=== PATIENT | male | born 1980 | race Caucasian/White ===

== ENCOUNTER 2016-11-27 11:46 | Emergency (ER) | payer OTHER ==
[~2016-11-27] VITALS: Ht 177.8 cm; Wt 104.0 kg
[~2016-11-27 11:46] MED LIST: DM/P295L11 PO; LEVO750T26 PO; OMEP20CA9 PO; PRED20TA PO
[2016-11-27] MEDS ORDERED: OMEP40CA6 PO (12:31)
[2016-11-27 13:35] LABS: ASPARTATE AMINO TRANSFERASE 48 U/L (15-37); BLOOD UREA NITROGEN 17 mg/dL (7-18)
[2016-11-27 15:43] VITALS: BP 115/68
== END 2016-11-27 15:45 | disposition home or self-care (01) ==
LOC: ED 15:29
DX: R10.13 Epigastric pain (principal); R11.2 Nausea with vomiting, unspecified
CPT/HCPCS: 36415; 80053; 81001; 83690; 85025; 93005

== ENCOUNTER 2017-05-08 07:29 | Inpatient (IN) | payer OTHER ==
[~2017-05-08] VITALS: Ht 172.7 cm; Wt 109.4 kg
[~2017-05-08 07:29] MED LIST changes: +OMEP40CA6 PO
[2017-05-08] MEDS ORDERED: SODIUM CHLORIDE 0.9% 1,000ML IVBOLUS ONE (08:00)
[2017-05-08] MEDS ORDERED: SODIUM CHLORIDE FLUSH 10ML SYR IVF ONE (08:00)
[2017-05-08] MEDS ORDERED: FAMOTIDINE 20 MG/2 ML IVP ONE (08:00)
[2017-05-08] MEDS ORDERED: ONDANSETRON 2MG/ML, 2ML IVPush ONE (08:00)
[2017-05-08] MEDS ORDERED: FAMOTIDINE 20 MG/2 ML ONE (08:19)
[2017-05-08] MEDS ORDERED: ONDANSETRON 2MG/ML, 2ML ONE ×3 (08:19→12:39)
[2017-05-08 08:30] LABS: HEMATOCRIT 46.3 % (39.2-51.8); HEMOGLOBIN 15.7 g/dL (13.7-18.0); WHITE BLOOD COUNT 10.7 x10^3/uL (3.4-10)
[2017-05-08 08:40] LABS: BLOOD UREA NITROGEN 12 mg/dL (7-18)
[2017-05-08 08:43] LABS: ASPARTATE AMINO TRANSFERASE 270 U/L (15-37)
[2017-05-08] MEDS ORDERED: MORPHINE SULFATE 4 MG/ML, 1ML IVPush ONE (09:00)
[2017-05-08] MEDS ORDERED: MORPHINE SULFATE 4 MG/ML, 1ML ONE (09:29)
[2017-05-08] MEDS ORDERED: SODIUM CHLORIDE 0.9% 1,000 ML IV ONE (09:44)
[2017-05-08] MEDS ORDERED: PIPERACILLIN/TAZO/PMX 3.375GM 50 ML ONE ×2 (09:50→10:51)
[2017-05-08] MEDS ORDERED: HYDROmorphone 1 MG/ML, 1ML IVPush PRN (10:00)
[2017-05-08] MEDS ORDERED: ONDANSETRON 2MG/ML, 2ML IVPush PRN ×2 (10:00→11:30)
[2017-05-08] MEDS ORDERED: SODIUM CHLORIDE FLUSH 10ML SYR IVF PRN (10:00)
[2017-05-08] MEDS ORDERED: PIPERACILLIN/TAZO/PMX 3.375GM 50 ML IV ONE (10:00)
[2017-05-08] MEDS ORDERED: KETOROLAC 30 MG/1 ML ONE (10:35)
[2017-05-08] MEDS ORDERED: MIDAZOLAM 1 MG/ML, 2ML ONE (10:35)
[2017-05-08] MEDS ORDERED: FENTANYL PF 100 MCG/2ML ONE ×2 (10:36)
[2017-05-08] MEDS ORDERED: METOPROLOL 1 MG/ML, 5ML IV PRN (11:30)
[2017-05-08] MEDS ORDERED: OXYcodone 5 MG/5 ML ORAL.SOL UDC PO PRN (11:30)
[2017-05-08] MEDS ORDERED: MEPERIDINE/PF 25MG/0.5ML IVPush PRN (11:30)
[2017-05-08] MEDS ORDERED: MIDAZOLAM 1 MG/ML, 2ML IV PRN (11:30)
[2017-05-08] MEDS ORDERED: HYDROcodone/APAP 7.5-325MG/15ML UDC PO PRN (11:30)
[2017-05-08] MEDS ORDERED: KETOROLAC 30 MG/1 ML IV PRN (11:30)
[2017-05-08] MEDS ORDERED: hydrALAzine 20 MG/ML, 1ML IV PRN (11:30)
[2017-05-08] MEDS ORDERED: ALBUTEROL SULFATE 2.5 MG/3 ML NPPB PRN (11:30)
[2017-05-08] MEDS ORDERED: DIAZEPAM 5 MG/ML, 2ML IVPush PRN (11:30)
[2017-05-08] MEDS ORDERED: FENTANYL PF 100 MCG/2ML IV PRN (11:30)
[2017-05-08] MEDS ORDERED: ACETAMINOPHEN 325 MG TABLET PO PRN (11:30)
[2017-05-08] MEDS ORDERED: HYDROmorphone 1 MG/ML, 1ML IV PRN (11:30)
[2017-05-08] MEDS ORDERED: LABETALOL 5MG/ML, 20ML IV PRN (11:30)
[2017-05-08] MEDS ORDERED: EPHEDRINE 50 MG/ML, 1ML IVPush PRN (11:30)
[2017-05-08] MEDS ORDERED: PROMETHAZINE 25 MG/ML, 1ML IV PRN (11:30)
[2017-05-08] MEDS ORDERED: INDOMETHACIN 50 MG SUPP.RECT PR ONE (12:30)
[2017-05-08] MEDS ORDERED: OMNIPAQUE 350 MG/ML, 50 ML BOTTLE ONE (12:39)
[2017-05-08] MEDS ORDERED: PROPOFOL 10 MG/ML, 20ML ONE (12:39)
[2017-05-08] MEDS ORDERED: DEXAMETHASONE 4 MG/ML, 1ML ONE (12:39)
[2017-05-08] MEDS ORDERED: ROCURONIUM 10 MG/ML ONE (12:39)
[2017-05-08] MEDS ORDERED: SUCCINYLCHOLINE 20 MG/ML, 10ML ONE (12:39)
[2017-05-08] MEDS ORDERED: INDOMETHACIN 50 MG SUPP.RECT ONE (12:41)
[2017-05-08] MEDS ORDERED: hydrALAzine 20 MG/ML, 1ML IVPush PRN (15:00)
[2017-05-08] MEDS ORDERED: LABETALOL 5MG/ML, 20ML IVPush PRN (15:00)
[2017-05-08 15:26] VITALS: BP 135/83
[2017-05-08] MEDS: HYDROmorphone 2 MG/ML, 1ML IVPush PRN (15:27)
[2017-05-08] MEDS: THIAMINE 100 MG, MVI ADULT 10 ML, FOLIC ACID 1 MG in D5%-0.9% NACL 1,000 ML IV SCH (17:36)
[2017-05-08] MEDS: ENOXAPARIN 40 MG/0.4 ML SQ SCH (21:00)
[2017-05-08 21:37] VITALS: BP 119/68
[2017-05-08] MEDS: NS + 20MEQ KCL 1,000 ML IV SCH (21:44)
[2017-05-09 02:31] VITALS: BP 106/68
[2017-05-09 05:39] LABS: WHITE BLOOD COUNT 14.6 x10^3/uL (3.4-10)
[2017-05-09 05:52] LABS: BLOOD UREA NITROGEN 13 mg/dL (7-18)
[2017-05-09 06:03] LABS: ASPARTATE AMINO TRANSFERASE 81 U/L (15-37)
[2017-05-09 08:12] VITALS: BP 133/81
[2017-05-09] MEDS: HYDROmorphone 2 MG/ML, 1ML IVPush PRN ×3 (08:16→22:57)
[2017-05-09] MEDS: NS + 20MEQ KCL 1,000 ML IV SCH ×3 (10:00→23:26)
[2017-05-09] MEDS ORDERED: EPINEPHRINE 1 MG/ML, 1ML ONE ×2 (13:45→14:07)
[2017-05-09] MEDS ORDERED: BUPIVACAINE/PF 0.25% ONE (13:45)
[2017-05-09 13:50] VITALS: BP 131/84
[2017-05-09] MEDS ORDERED: MIDAZOLAM 1 MG/ML, 2ML ONE (13:57)
[2017-05-09] MEDS ORDERED: FENTANYL PF 250 MCG/5ML ONE (13:58)
[2017-05-09] MEDS ORDERED: CEFOTETAN 1 GM ONE (14:07)
[2017-05-09] MEDS ORDERED: ONDANSETRON 2MG/ML, 2ML ONE (14:07)
[2017-05-09] MEDS ORDERED: ROCURONIUM 10MG/ML,5ML ONE (14:07)
[2017-05-09] MEDS ORDERED: PROPOFOL 10 MG/ML, 20ML ONE (14:07)
[2017-05-09] MEDS ORDERED: DEXAMETHASONE 4 MG/ML, 5ML ONE (14:07)
[2017-05-09] MEDS ORDERED: KETOROLAC 30 MG/1 ML ONE (14:07)
[2017-05-09] MEDS ORDERED: FENTANYL PF 100 MCG/2ML ONE ×2 (14:40→15:26)
[2017-05-09] MEDS ORDERED: OXYcodone 5 MG/5 ML ORAL.SOL UDC PO PRN (15:00)
[2017-05-09] MEDS ORDERED: ALBUTEROL/IPRATROPIUM 2.5MG/0.5MG, 3 ML NPPB PRN (15:00)
[2017-05-09] MEDS ORDERED: HYDROmorphone 1 MG/ML, 1ML IV PRN (15:00)
[2017-05-09] MEDS ORDERED: ONDANSETRON 2MG/ML, 2ML IVPush PRN (15:00)
[2017-05-09] MEDS ORDERED: LABETALOL 5MG/ML, 20ML IV PRN (15:00)
[2017-05-09] MEDS ORDERED: ACETAMINOPHEN 325 MG TABLET PO PRN (15:00)
[2017-05-09] MEDS ORDERED: ALBUTEROL SULFATE 2.5 MG/3 ML ONE (15:13)
[2017-05-09] MEDS ORDERED: OXYcodone 5 MG/5 ML ORAL.SOL UDC ONE (15:25)
[2017-05-09] MEDS ORDERED: ACETAMINOPHEN 650 MG/20.3 ML UDC ONE (15:25)
[2017-05-09] MEDS ORDERED: ACETAMINOPHEN 325 MG TABLET ONE (15:26)
[2017-05-09] MEDS: FENTANYL PF 100 MCG/2ML IV PRN ×2 (15:35→15:45)
[2017-05-09] MEDS: PIPERACILLIN/TAZO/PMX 3.375GM 50 ML IV SCH ×2 (17:10→22:47)
[2017-05-09] MEDS ORDERED: morphine SULFATE 10 MG/ML, 1ML IV PRN (17:30)
[2017-05-09 19:08] VITALS: BP 129/68
[2017-05-09] MEDS: ENOXAPARIN 40 MG/0.4 ML SQ SCH (21:00)
[2017-05-09] MEDS: THIAMINE 100 MG, MVI ADULT 10 ML, FOLIC ACID 1 MG in D5%-0.9% NACL 1,000 ML IV SCH (21:05)
[2017-05-10 02:22] VITALS: BP 107/51
[2017-05-10] MEDS: PIPERACILLIN/TAZO/PMX 3.375GM 50 ML IV SCH ×4 (04:49→22:25)
[2017-05-10] MEDS ORDERED: ALBUTEROL SULFATE 2.5 MG/3 ML NPPB PRN (05:00)
[2017-05-10] MEDS: HYDROmorphone 2 MG/ML, 1ML IVPush PRN (05:14)
[2017-05-10] MEDS: NS + 20MEQ KCL 1,000 ML IV SCH ×4 (06:12→23:48)
[2017-05-10 06:15] LABS: HEMATOCRIT 36.5 % (39.2-51.8); HEMOGLOBIN 12.3 g/dL (13.7-18.0); WHITE BLOOD COUNT 17.2 x10^3/uL (3.4-10)
[2017-05-10 06:27] LABS: ASPARTATE AMINO TRANSFERASE 24 U/L (15-37); BLOOD UREA NITROGEN 7 mg/dL (7-18)
[2017-05-10] MEDS: HYDROcodone/APAP 5/325 TABLET PO PRN ×3 (07:53→20:35)
[2017-05-10 08:12] VITALS: BP 117/78
[2017-05-10 12:34] VITALS: BP 127/82
[2017-05-10 18:43] VITALS: BP 136/84
[2017-05-10] MEDS: ENOXAPARIN 40 MG/0.4 ML SQ SCH (21:00)
[2017-05-10] MEDS: THIAMINE 100 MG, MVI ADULT 10 ML, FOLIC ACID 1 MG in D5%-0.9% NACL 1,000 ML IV SCH (23:48)
[2017-05-11 01:45] VITALS: BP 111/73
[2017-05-11] MEDS: PIPERACILLIN/TAZO/PMX 3.375GM 50 ML IV SCH (05:26)
[2017-05-11] MEDS: HYDROcodone/APAP 5/325 TABLET PO PRN ×3 (05:29→19:16)
[2017-05-11 05:37] LABS: HEMATOCRIT 37.4 % (39.2-51.8); HEMOGLOBIN 12.6 g/dL (13.7-18.0); WHITE BLOOD COUNT 16.2 x10^3/uL (3.4-10)
[2017-05-11 05:48] LABS: BLOOD UREA NITROGEN 7 mg/dL (7-18)
[2017-05-11] MEDS: NS + 20MEQ KCL 1,000 ML IV SCH ×2 (06:54→08:46)
[2017-05-11 07:35] VITALS: BP 122/78
[2017-05-11 07:45] VITALS: BP 127/76
[2017-05-11] MEDS: LEVOFLOXACIN/PMX 750MG/150ML 150 ML IV SCH (08:46)
[2017-05-11 15:02] VITALS: BP 113/67
[2017-05-11 19:11] VITALS: BP 121/82
[2017-05-11] MEDS: ENOXAPARIN 40 MG/0.4 ML SQ SCH (19:17)
[2017-05-11] MEDS: THIAMINE 100 MG, MVI ADULT 10 ML, FOLIC ACID 1 MG in D5%-0.9% NACL 1,000 ML IV SCH (19:26)
[2017-05-12 00:07] VITALS: BP 113/67
[2017-05-12] MEDS: HYDROcodone/APAP 5/325 TABLET PO PRN (05:19)
[2017-05-12 05:55] LABS: HEMATOCRIT 37.9 % (39.2-51.8); HEMOGLOBIN 12.6 g/dL (13.7-18.0); WHITE BLOOD COUNT 14.7 x10^3/uL (3.4-10)
[2017-05-12 06:11] LABS: BLOOD UREA NITROGEN 8 mg/dL (7-18)
[2017-05-12 07:17] VITALS: BP 116/71
[2017-05-12] MEDS: LEVOFLOXACIN/PMX 750MG/150ML 150 ML IV SCH (09:02)
[2017-05-12] MEDS ORDERED: LEVO750T26 PO (11:00)
[2017-05-12] MEDS ORDERED: HYDR-3240 PO (11:00)
[2017-05-12] MEDS ORDERED: FLU VACC QS2017-18 (36MOS+) UP/PF 0.5 ML IM-VACC ONE (11:30)
== END 2017-05-12 13:52 | disposition home or self-care (01) | DRG 417 ==
LOC: ED 09:00 → EDIP 09:55 → 3NE 13:28 → DCLOUNGE 05-12 13:15
PROVIDERS: ADMIT Hospitalist; ATTEND Hospitalist
PROC: 0FT44ZZ Resection of Gallbladder, Percutaneous Endoscopic Approach (ICD-10-PCS; principal; 2017-05-09 13:30)
DX: K80.63 Calculus of gallbladder and bile duct with acute cholecystitis with obstruction (principal); K85.10 Biliary acute pancreatitis without necrosis or infection; K21.9 Gastro-esophageal reflux disease without esophagitis; Z80.0 Family history of malignant neoplasm of digestive organs; Z80.51 Family history of malignant neoplasm of kidney; Z87.01 Personal history of pneumonia (recurrent); Z90.49 Acquired absence of other specified parts of digestive tract
CPT/HCPCS: 36415; 71010; 74328; 76700; 80048; 80053; 80076; 81001; 83690; 84439; 84443; 85025; 85610; 86140; 87040; 87086; 88304; 94640; 96361; 96365; 96375; C1729; J0171; J1100; J1170; J1650; J1885; J1956; J2250; J2405; J2543; J2704; J3010; J3411; J3480; J3490; J7042; J7613; Q9967; C1725; C1769; J0330; J7030; S0028; S0074